=== PATIENT | male | born 1955 | race Caucasian/White ===

== ENCOUNTER → 2019-01-31 | Day surgery (SDC) | payer BC ==
[~2019-01-31] MED LIST: Lactated Ringers 1,000 ML IV SCH; Propofol 200 MG/20 ML SDV IV ONE
[2019-01-31 12:37] VITALS: BP 95/56
--- NOTE | 2019-02-03 09:46 | OR ---
DATE OF OPERATION: 01/31/2019 PREOPERATIVE DIAGNOSIS: HISTORY OF POLYPS. POSTOPERATIVE DIAGNOSIS: HISTORY OF POLYPS. SURGEON: Hayes Dickson MD PROCEDURE: DIAGNOSTIC COLONOSCOPY WITH POLYP REMOVAL X3. ANESTHESIA: MAC via NEONATOLOGIST. COMPLICATIONS: None. SPECIMEN: Three tubular adenomas. FINDINGS: 1. Full-length colonoscopy. 2. Snare polypectomy x1. 3. Forceps polyp removal x2. 4. Mild sigmoid diverticulosis. RECOMMENDATIONS: Followup colonoscopy in 5 years. INDICATIONS: The patient was in for a routine physical. He had a prior colonoscopy about 5 years ago with polyps removed. He is due for a followup. DESCRIPTION OF PROCEDURE: The patient was prepped and draped, placed in the left lateral decubitus position. A lubricated Olympus colonoscope was inserted and easily advanced to the cecum. I was able to directly visualize the ileocecal valve and appendiceal orifice. The bowel prep was excellent. Upon withdrawal of the scope, the cecum and ascending colon appeared benign. Right at the hepatic flexure, the patient had a small flat sessile polyp removed with a forceps in its entirety. There was some bleeding. We were able to irrigate it and cessation was spontaneous and visualized. The rest of the transverse colon was unremarkable. Right at the splenic flexure, the patient had a 2nd small sessile polyp also removed with a cold forceps in its entirety with a forceps biopsy x1. The rest of the descending colon was benign. The patient did have scattered diverticula through the sigmoid into the rectosigmoid junction, mild in severity. In the proximal to mid sigmoid, the patient had a larger stalk tubular adenoma removed with a snare and suctioned into polyp trap #1. No further polyps, mass, ulceration, or bleeding sites were seen. No signs of any vascular abnormalities. The rectal vault was benign. Retroflexion of the scope in the rectum showed no anal lesions. Air was suctioned, scope removed without complication. NAVEEN/VILMA /[id number]
== END ==
LOC: CC.SDS 10:26
PROVIDERS: ATTEND Family Medicine
DX: Z12.11 Encounter for screening for malignant neoplasm of colon (principal); D12.3 Benign neoplasm of transverse colon; D12.5 Benign neoplasm of sigmoid colon; Z86.010 Personal history of colon polyps; K57.30 Diverticulosis of large intestine without perforation or abscess without bleeding; I10 Essential (primary) hypertension; M10.9 Gout, unspecified; E78.5 Hyperlipidemia, unspecified; M47.812 Spondylosis without myelopathy or radiculopathy, cervical region; G47.30 Sleep apnea, unspecified; R73.9 Hyperglycemia, unspecified
CPT/HCPCS: 45385; J2704; J7120

== ENCOUNTER 2024-02-15 07:19 | Day surgery (SDC) | payer MEDICARE, BC ==
[2024-02-15] MEDS: Lactated Ringers 1,000 ML IV SCH (07:38)
[2024-02-15] MEDS ORDERED: fentaNYL 50 MCG/ML SDV ONE (08:01)
[2024-02-15] MEDS ORDERED: Ketamine 200 MG/20 ML MDV ONE (08:01)
[2024-02-15] MEDS ORDERED: ePHEDrine 50 MG/ML SDV ONE (08:01)
[2024-02-15] MEDS ORDERED: Lidocaine 1% 30 ML SDV ONE (08:01)
[2024-02-15] MEDS ORDERED: Propofol 200 MG/20 ML SDV ONE ×2 (08:01)
[2024-02-15 09:28] VITALS: BP 153/79; PULSE 72
== END 2024-02-15 09:44 | disposition home or self-care (01) ==
LOC: CC.SDS 07:19
PROVIDERS: ATTEND Family Medicine
DX: K29.50 Unspecified chronic gastritis without bleeding (principal); K31.7 Polyp of stomach and duodenum; D12.2 Benign neoplasm of ascending colon; D12.3 Benign neoplasm of transverse colon; K57.30 Diverticulosis of large intestine without perforation or abscess without bleeding; K29.80 Duodenitis without bleeding; I10 Essential (primary) hypertension; E78.5 Hyperlipidemia, unspecified; G47.33 Obstructive sleep apnea (adult) (pediatric); E66.9 Obesity, unspecified; Z68.32 Body mass index [BMI] 32.0-32.9, adult; Z86.010 Personal history of colon polyps; Z79.899 Other long term (current) drug therapy; Z98.890 Other specified postprocedural states
CPT/HCPCS: 00813; 43239; 45385; 87081; 88305; J2704; J3010; J3490; J7120